=== PATIENT | female | born 1995 | race Caucasian/White ===

== ENCOUNTER 2017-07-15 14:23 | Emergency (ER) | payer BC ==
[~2017-07-15] VITALS: Ht 157.5 cm; Wt 61.6 kg
[2017-07-15 15:14] VITALS: BP 128/80
[2017-07-15 16:08] LABS: SERUM ETHYL ALCOHOL 48 mg/dL
[2017-07-15 16:16] LABS: QUANTITATIVE HCG < 4.0 MIU/ML
[2017-07-15 20:33] LABS: ADD MEDTOX COMMENT Y; AMPHETAMINE NEGATIVE (500 ng/mL); BARBITURATES NEGATIVE (200 ng/mL); BENZODIAZEPINES NEGATIVE (150 ng/mL); COCAINE PRESUMPTIVE POSITIVE (150 ng/mL); INTERNAL CONTROLS VALID? YES; METHADONE NEGATIVE (200 ng/mL); METHAMPHETAMINE NEGATIVE (500 ng/mL); OPIATES (MORPHINE) NEGATIVE (100 ng/mL); OXYCODONE NEGATIVE (100 ng/mL); PHENCYCLIDINE NEGATIVE (25 ng/mL); PROPOXYPHENE NEGATIVE (300 ng/mL); THC CANNABINOIDS NEGATIVE (50 ng/mL); TRICYCLIC ANTIDEPRESSANTS NEGATIVE (300 ng/mL)
[2017-07-16 10:22] LABS: TREPONEMA ANTIBODY NEGATIVE (NEGATIVE)
[2017-07-16 13:37] LABS: CHLAMYDIA TRACHOMATIS NEGATIVE; NEISSERIA GONORRHOEAE NEGATIVE
== END 2017-07-15 20:43 | disposition left against medical advice (07) ==
LOC: EME 14:23
PROVIDERS: Emergency Medicine
DX: T76.21XA Adult sexual abuse, suspected, initial encounter (principal)
CPT/HCPCS: 70498; 84702; 84999; 86780; 87210; 87491; 87591; G0480; J0696